=== PATIENT | male | born 1960 | race Caucasian/White ===

== ENCOUNTER 2019-09-24 19:28 | Inpatient (IN) | payer MEDICARE, MEDICAID ==
[~2019-09-24] VITALS: Ht 180.3 cm; Wt 67.9 kg
--- NOTE | 2019-09-24 20:03 | NUR ---
PT SEATED IN HIS WHEELCHAIR, IS SEATED IN CHAIR AT NURSES STATION FOR PT SAFETY ON [employer] HOLD BY RPSteffanie. DR CONWAY CURRENTLY TALKING WITH PT.
[2019-09-24] MEDS ORDERED: SODIUM CHLORIDE 0.9% 1,000ML IVBOLUS ONE (20:30)
[2019-09-24 20:35] LABS: BASOPHILS # (AUTO) 0.05 x10^3/uL (0-0.1); BASOPHILS % (AUTO) 1 % (0-1); EOSINOPHILS % (AUTO) 0 % (1-7); LYMPHOCYTES # (AUTO) 0.77 x10^3/uL (1-3.4); LYMPHOCYTES % (AUTO) 7 % (22-44); MD NO; MEAN CORPUSCULAR HEMOGLOBIN 28.5 pg (27.5-34.5); MEAN CORPUSCULAR HGB CONC 33.7 g/dL (33.2-36.2); MEAN PLATELET VOLUME 7.4 fL (7.4-10.4); MONOCYTES # (AUTO) 0.73 x10^3/uL (0.2-0.8); MONOCYTES % (AUTO) 6 % (2-9); NEUTROPHILS # (AUTO) 10.04 x10^3/uL (1.8-6.8); NEUTROPHILS % (AUTO) 87 % (42-75); PLATELET COUNT 501 x10^3/uL (130-400); RED BLOOD COUNT 4.07 x10^6/uL (4.38-5.82); RED CELL DISTRIBUTION WIDTH 13.4 % (9.4-14.8)
[2019-09-24 20:40] LABS: ALANINE AMINOTRANSFERASE 33 U/L (12-78); ALBUMIN 2.5 g/dL (3.4-5.0); ANION GAP 10 mmol/L (5-15); CALCIUM 8.9 mg/dL (8.5-10.1); CHLORIDE 103 mmol/L (98-107); CREATININE 2.45 mg/dL (0.7-1.3); SALICYLATE LEVEL 1.9 mg/dL (2.8-20.0)
[2019-09-24 20:42] LABS: ALKALINE PHOSPHATASE 222 U/L (45-117); BILIRUBIN,TOTAL 0.7 mg/dL (0.2-1.0); TOTAL PROTEIN 7.1 g/dL (6.4-8.2)
[2019-09-24] MEDS ORDERED: CLINDAMYCIN PMX 600MG/50ML 50 ML ONE (21:18)
--- NOTE | 2019-09-24 21:25 | NUR ---
ANTIBIOTIC THERAPY STARTED. PATIENT VERBALIZED UNDERSTANDING OF EDUCATION. PATIENT BELIEVES THAT NURSE IS HIS EX . ORIENTED TO OTHER ORIENTATION QUESTIONS WELL.
[2019-09-24] MEDS ORDERED: PLEASE ENTER ALLERGIES MC SCH ×2 (21:30→22:00)
[2019-09-24] MEDS ORDERED: CLINDAMYCIN PMX 600MG/50ML 50 ML IV ONE (21:30)
[2019-09-24] MEDS ORDERED: SODIUM CHLORIDE 0.9% 1,000 ML IV SCH (21:38)
[2019-09-24] MEDS ORDERED: PLEASE ENTER WEIGHT MC SCH (22:00)
[2019-09-24] MEDS ORDERED: POLYETHYLENE GLYCOL 17 GM PACKET PO PRN (22:00)
[2019-09-24] MEDS ORDERED: BISACODYL 10 MG SUPP PR PRN (22:00)
[2019-09-24] MEDS ORDERED: PERMETHRIN CRM 5%, 60GM TP SCH (22:00)
[2019-09-24] MEDS ORDERED: ONDANSETRON ODT 4 MG PO PRN (22:00)
--- NOTE | 2019-09-24 22:38 | NUR ---
PATIENT'S WHEELCHAIR IS IN THE DECON ROOM; WHEELCHAIR CAN NOT BE BROUGHT TO THE ROOM DUE TO THE FACT THAT THE PATIENT'S DWELLING HAS BED BUGS. PATIENT ADMITTED TO HAVING BED BUGS AT HOME. PATIENT WAS DECONED IN DECONTAMINATION ROOM PRIOR TO ADMISSION TO HOSPITAL. PRATIK GILMORE.
--- NOTE | 2019-09-24 22:40 | NUR ---
PATIENT ANTIBIOTIC HAS FINISHED, PATIENT DENIES ANY COMPLICATIONS RELATED TO ANTIBIOTIC THERAPY
[2019-09-24 23:04] VITALS: BP 167/111
[2019-09-24 23:05] LABS: ESTIMATED AVERAGE GLUCOSE 355 mg/dL (0-126)
[2019-09-24] MEDS: INSULIN LISPRO 100 UNITS/ML, PEN SQ-INSULIN SCH (23:43)
[2019-09-24] MEDS: HEPARIN 5,000 UNITS/ML, 1ML SQ SCH (23:44)
[2019-09-25 01:10] LABS: MICROSCOPIC INDICATED
[2019-09-25 01:18] LABS: CHLORIDE,URINE RANDOM 17 mmol/L; POTASSIUM,URINE RANDOM 23 mmol/L; SODIUM,URINE RANDOM 22 mmol/L
[2019-09-25 01:22] LABS: AMPHETAMINE SCREEN, URINE Negative (Negative); BARBITURATE SCREEN, URINE Negative (Negative); BENZODIAZEPINE SCREEN, URINE Negative (Negative); CANNABINOID SCREEN, URINE Negative (Negative); COCAINE SCREEN, URINE Negative (Negative); METHADONE SCREEN, URINE Negative (Negative); OPIATE SCREEN, URINE Negative (Negative)
[2019-09-25 03:49] VITALS: BP 124/77
[2019-09-25] MEDS: CLINDAMYCIN PMX 600MG/50ML 50 ML IV SCH ×3 (04:57→21:05)
[2019-09-25 05:40] LABS: BASOPHILS # (AUTO) 0.02 x10^3/uL (0-0.1); BASOPHILS % (AUTO) 0 % (0-1); EOSINOPHILS % (AUTO) 0 % (1-7); LYMPHOCYTES # (AUTO) 1.01 x10^3/uL (1-3.4); LYMPHOCYTES % (AUTO) 9 % (22-44); MD NO; MEAN CORPUSCULAR HEMOGLOBIN 28.2 pg (27.5-34.5); MEAN CORPUSCULAR HGB CONC 33.2 g/dL (33.2-36.2); MEAN PLATELET VOLUME 6.9 fL (7.4-10.4); MONOCYTES # (AUTO) 0.76 x10^3/uL (0.2-0.8); MONOCYTES % (AUTO) 7 % (2-9); NEUTROPHILS # (AUTO) 9.54 x10^3/uL (1.8-6.8); NEUTROPHILS % (AUTO) 84 % (42-75); PLATELET COUNT 409 x10^3/uL (130-400); RED BLOOD COUNT 3.55 x10^6/uL (4.38-5.82); RED CELL DISTRIBUTION WIDTH 13.2 % (9.4-14.8)
[2019-09-25 05:49] LABS: ANION GAP 7 mmol/L (5-15); CALCIUM 8.3 mg/dL (8.5-10.1); CHLORIDE 111 mmol/L (98-107); CREATININE 1.69 mg/dL (0.7-1.3)
[2019-09-25] MEDS: INSULIN LISPRO 100 UNITS/ML, PEN SQ-INSULIN SCH ×4 (07:00→21:06)
[2019-09-25 07:41] VITALS: BP 106/59
[2019-09-25 08:13] LABS: HCT (SEDRATE) 30.2 % (39.2-51.8)
[2019-09-25] MEDS: SENNA/DOCUSATE TABLET PO SCH (10:27)
[2019-09-25] MEDS: HEPARIN 5,000 UNITS/ML, 1ML SQ SCH ×2 (10:27→18:28)
[2019-09-25] MEDS: INSULIN GLARGINE 100 UNITS/ML, PEN SQ-INSULIN SCH ×2 (13:26→21:06)
[2019-09-25] MEDS: ACETAMINOPHEN 325 MG TABLET PO PRN ×2 (13:26→18:28)
[2019-09-25 15:42] VITALS: BP 122/61
[2019-09-25 19:55] VITALS: BP 116/73
[2019-09-26 00:15] VITALS: BP 126/78
[2019-09-26] MEDS: ACETAMINOPHEN 325 MG TABLET PO PRN ×3 (01:09→23:16)
[2019-09-26] MEDS: HEPARIN 5,000 UNITS/ML, 1ML SQ SCH ×3 (02:30→23:16)
[2019-09-26] MEDS: CLINDAMYCIN PMX 600MG/50ML 50 ML IV SCH ×3 (05:11→22:35)
[2019-09-26 05:34] LABS: BASOPHILS # (AUTO) 0.04 x10^3/uL (0-0.1); BASOPHILS % (AUTO) 1 % (0-1); EOSINOPHILS # (AUTO) 0.15 x10^3/uL (0-0.4); EOSINOPHILS % (AUTO) 2 % (1-7); LYMPHOCYTES # (AUTO) 1.52 x10^3/uL (1-3.4); LYMPHOCYTES % (AUTO) 21 % (22-44); MD NO; MEAN CORPUSCULAR HEMOGLOBIN 28.5 pg (27.5-34.5); MEAN CORPUSCULAR HGB CONC 33.6 g/dL (33.2-36.2); MEAN PLATELET VOLUME 7.5 fL (7.4-10.4); MONOCYTES # (AUTO) 0.51 x10^3/uL (0.2-0.8); MONOCYTES % (AUTO) 7 % (2-9); NEUTROPHILS # (AUTO) 5.03 x10^3/uL (1.8-6.8); NEUTROPHILS % (AUTO) 69 % (42-75); PLATELET COUNT 345 x10^3/uL (130-400); RED CELL DISTRIBUTION WIDTH 12.9 % (9.4-14.8)
[2019-09-26 05:40] LABS: ANION GAP 8 mmol/L (5-15); CALCIUM 7.3 mg/dL (8.5-10.1); CHLORIDE 107 mmol/L (98-107)
[2019-09-26 05:43] LABS: CREATININE 1.07 mg/dL (0.7-1.3)
[2019-09-26] MEDS: INSULIN LISPRO 100 UNITS/ML, PEN SQ-INSULIN SCH ×4 (07:25→23:17)
[2019-09-26] MEDS ORDERED: POTASSIUM CHLORIDE 20 MEQ TAB.ER.PRT PO ONE (07:30)
[2019-09-26] MEDS: SENNA/DOCUSATE TABLET PO SCH (08:26)
[2019-09-26] MEDS: TAMSULOSIN 0.4 MG CAP.ER.24H PO SCH (11:14)
[2019-09-26 14:45] VITALS: BP 127/79
[2019-09-26] MEDS: POTASSIUM CHLORIDE 20 MEQ TAB.ER.PRT PO SCH (16:38)
[2019-09-26 20:46] VITALS: BP 156/94
[2019-09-26] MEDS: INSULIN GLARGINE 100 UNITS/ML, PEN SQ-INSULIN SCH (23:17)
[2019-09-27 02:32] VITALS: BP 131/74
[2019-09-27 05:46] LABS: ANION GAP 4 mmol/L (5-15); CALCIUM 7.6 mg/dL (8.5-10.1); CHLORIDE 108 mmol/L (98-107)
[2019-09-27] MEDS: CLINDAMYCIN PMX 600MG/50ML 50 ML IV SCH ×3 (06:06→22:02)
[2019-09-27 07:09] VITALS: BP 133/87
[2019-09-27] MEDS: SENNA/DOCUSATE TABLET PO SCH (07:50)
[2019-09-27] MEDS: INSULIN LISPRO 100 UNITS/ML, PEN SQ-INSULIN SCH ×4 (07:56→22:02)
[2019-09-27] MEDS: HEPARIN 5,000 UNITS/ML, 1ML SQ SCH ×3 (07:57→23:42)
[2019-09-27] MEDS: TAMSULOSIN 0.4 MG CAP.ER.24H PO SCH (08:00)
[2019-09-27] MEDS: NEOSPORIN OINT, 15GM TP SCH ×2 (11:31→22:02)
[2019-09-27 13:57] VITALS: BP 159/93
[2019-09-27] MEDS: POTASSIUM CHLORIDE 20 MEQ TAB.ER.PRT PO SCH (18:03)
[2019-09-27 21:42] VITALS: BP 173/101
[2019-09-27] MEDS: INSULIN GLARGINE 100 UNITS/ML, PEN SQ-INSULIN SCH (22:02)
[2019-09-27] MEDS ORDERED: hydrALAzine 20 MG/ML, 1ML IV PRN (22:30)
[2019-09-28 00:13] VITALS: BP 152/86
[2019-09-28] MEDS: CLINDAMYCIN PMX 600MG/50ML 50 ML IV SCH ×2 (06:01→14:41)
[2019-09-28 08:02] VITALS: BP 131/80
[2019-09-28] MEDS: INSULIN LISPRO 100 UNITS/ML, PEN SQ-INSULIN SCH ×3 (08:11→16:40)
[2019-09-28] MEDS: TAMSULOSIN 0.4 MG CAP.ER.24H PO SCH (08:40)
[2019-09-28] MEDS: HEPARIN 5,000 UNITS/ML, 1ML SQ SCH ×2 (08:40→16:27)
[2019-09-28] MEDS: SENNA/DOCUSATE TABLET PO SCH (08:41)
[2019-09-28] MEDS: NEOSPORIN OINT, 15GM TP SCH (08:47)
[2019-09-28] MEDS ORDERED: CLIN300C8 PO (11:07)
[2019-09-28] MEDS ORDERED: METF500T17 PO (11:07)
[2019-09-28] MEDS ORDERED: TAMS-11 PO (11:07)
[2019-09-28 12:02] VITALS: BP 136/79
[2019-09-28] MEDS: POTASSIUM CHLORIDE 20 MEQ TAB.ER.PRT PO SCH (16:44)
== END 2019-09-28 18:10 | disposition home health service (06) | DRG 602 ==
LOC: ED 21:12 → EDIP 21:42 → 3N 22:41
PROVIDERS: ADMIT Internal Medicine; ATTEND Internal Medicine
DX: L03.115 Cellulitis of right lower limb (principal); N17.0 Acute kidney failure with tubular necrosis; R65.11 Systemic inflammatory response syndrome (SIRS) of non-infectious origin with acute organ dysfunction; R44.3 Hallucinations, unspecified; D64.9 Anemia, unspecified; E11.621 Type 2 diabetes mellitus with foot ulcer; E11.65 Type 2 diabetes mellitus with hyperglycemia; B88.8 Other specified infestations; F17.200 Nicotine dependence, unspecified, uncomplicated; L97.519 Non-pressure chronic ulcer of other part of right foot with unspecified severity; N40.0 Benign prostatic hyperplasia without lower urinary tract symptoms; M79.89 Other specified soft tissue disorders; D47.3 Essential (hemorrhagic) thrombocythemia; I25.2 Old myocardial infarction; Z59.0 Homelessness; Z63.8 Other specified problems related to primary support group; Z79.4 Long term (current) use of insulin; Z80.9 Family history of malignant neoplasm, unspecified; Z83.3 Family history of diabetes mellitus; Z86.73 Personal history of transient ischemic attack (TIA), and cerebral infarction without residual deficits; Z91.14 Patient's other noncompliance with medication regimen; Z90.89 Acquired absence of other organs
CPT/HCPCS: 36415; 80048; 80053; 80307; 81001; 82436; 82570; 82962; 83036; 83735; 84133; 84300; 85025; 85651; 86140; 87040; 99285; G0378; J1644; J0360; J1815; J7030